=== PATIENT | female | born 1985 | race Caucasian/White ===

== ENCOUNTER 2016-07-11 07:22 | Emergency (ER) | payer OTHER | END 2016-07-11 10:10 | disposition home or self-care (01) | LOC: ER1 07:22 | DX: S29.011A Strain of muscle and tendon of front wall of thorax, initial encounter (principal); F17.200 Nicotine dependence, unspecified, uncomplicated; Z90.49 Acquired absence of other specified parts of digestive tract; X58.XXXA Exposure to other specified factors, initial encounter; Y92.69 Other specified industrial and construction area as the place of occurrence of the external cause; Y99.0 Civilian activity done for income or pay; Z88.5 Allergy status to narcotic agent; Z88.8 Allergy status to other drugs, medicaments and biological substances | CPT/HCPCS: 71020; 96372; 99283; J1885 ==

== ENCOUNTER 2016-07-30 21:48 | Emergency (ER) | payer OTHER | END 2016-07-30 23:45 | disposition left against medical advice (07) | LOC: ER1 21:48 | DX: Z53.21 Procedure and treatment not carried out due to patient leaving prior to being seen by health care provider (principal) ==

== ENCOUNTER 2020-02-28 01:03 | Emergency (ER) | payer BC ==
[~2020-02-28 01:03] MED LIST: CLEOCIN HCL300 MG PO; MUCINEX DM ER1 EACH PO; PROAIR HFA8.5 GM INH; SUDAFED 30 MG T30 MG PO; ZOFRAN ODT 4 MG4 MG PO; ZYRTEC10 MG PO
[2020-02-28] MEDS ORDERED: LODINE CAP 300300 MG PO (02:03)
[2020-02-28] MEDS ORDERED: PENVEE K 500 M500 MG PO (02:03)
[2020-02-28] MEDS ORDERED: PERCOCET 5/325 T1 EA PO (02:20)
== END 2020-02-28 02:42 | disposition home or self-care (01) ==
LOC: ER1 01:03
DX: K08.89 Other specified disorders of teeth and supporting structures (principal); K02.9 Dental caries, unspecified; F17.210 Nicotine dependence, cigarettes, uncomplicated; Z88.8 Allergy status to other drugs, medicaments and biological substances; Z88.5 Allergy status to narcotic agent; Z87.19 Personal history of other diseases of the digestive system
CPT/HCPCS: 64400; 99282

== ENCOUNTER → 2020-04-22 | Outpatient (CLI) | payer BC, OTHER ==
[~2020-04-22] MED LIST changes: +ALBUTEROL2.5 MG/3 M INH; +AMOX TR-K CLV1 EAC4 PO; +AUGMENTIN 875-1 EACH PO; +BENZONATATE100 MG PO; +COMBIVENT RESPIM4 GM INH; +LODINE CAP 300300 MG PO; +MEDROL4 MG PO; +MONTELUKAST SOD10 MG PO; +PENVEE K 500 M500 MG PO; +PERCOCET 5/325 T1 EA PO; +PREDNISONE20 MG PO
== END ==
LOC: KOH-I 09:50
DX: K76.0 Fatty (change of) liver, not elsewhere classified (principal)
CPT/HCPCS: 76705

== ENCOUNTER 2020-06-03 00:47 | Emergency (ER) | payer BC, OTHER ==
[~2020-06-03 00:47] MED LIST changes: -ALBUTEROL2.5 MG/3 M INH; -AMOX TR-K CLV1 EAC4 PO; -AUGMENTIN 875-1 EACH PO; -BENZONATATE100 MG PO; -COMBIVENT RESPIM4 GM INH; -MEDROL4 MG PO; -MONTELUKAST SOD10 MG PO; -PREDNISONE20 MG PO
[2020-06-03] MEDS ORDERED: PENVEE K 500 M500 MG PO (01:29)
[2020-06-03] MEDS ORDERED: LODINE CAP 300300 MG PO (01:29)
== END 2020-06-03 01:43 | disposition home or self-care (01) ==
LOC: ER1 00:47
DX: K02.9 Dental caries, unspecified (principal); K04.7 Periapical abscess without sinus; F17.210 Nicotine dependence, cigarettes, uncomplicated; Z88.5 Allergy status to narcotic agent
CPT/HCPCS: 96372; 99282; J1885

== ENCOUNTER 2020-08-14 02:22 | Inpatient (IN) | payer BC, OTHER ==
[~2020-08-14] VITALS: Ht 165.1 cm; Wt 136.1 kg
[2020-08-14 03:53] LABS: HEMOGLOBIN 9.9 gm/dl (12.3-15.3); RED BLOOD COUNT 3.6 M/UL (4.00-5.10); WHITE BLOOD COUNT 22.2 K/UL (4.5-11.0)
[2020-08-14 04:10] LABS: BUN/CREATININE RATIO 26 (0-10)
[2020-08-14] MEDS ORDERED: BENZONATATE100 MG PO (07:25)
[2020-08-14] MEDS ORDERED: ALBUTEROL2.5 MG/3 M INH (07:25)
[2020-08-14] MEDS ORDERED: AMOX TR-K CLV1 EAC4 PO (07:25)
[2020-08-14] MEDS ORDERED: MONTELUKAST SOD10 MG PO (07:25)
[2020-08-14] MEDS ORDERED: PREDNISONE20 MG PO (07:26)
[2020-08-15 05:20] LABS: HEMOGLOBIN 10.2 gm/dl (12.3-15.3); RED BLOOD COUNT 3.64 M/UL (4.00-5.10); WHITE BLOOD COUNT 20.3 K/UL (4.5-11.0)
[2020-08-15 05:43] LABS: BUN/CREATININE RATIO 20 (0-10)
[2020-08-16] MEDS ORDERED: MEDROL4 MG PO (12:08)
[2020-08-16] MEDS ORDERED: COMBIVENT RESPIM4 GM INH (12:11)
[2020-08-16] MEDS ORDERED: AUGMENTIN 875-1 EACH PO (12:15)
[2020-08-16 13:31] LABS: BUN/CREATININE RATIO 25 (0-10)
--- NOTE | 2020-08-16 14:11 | NUR ---
PATIENT HAD CRITICAL LAB VALUE FOR LACTIC ACID OF 27.6. PROVIDER WAS NOTIFIED AND SAID SHE WAS STILL GOING TO DISCHARGE PATIENT. PROVIDER WANTED PATIENT TO FOLLOW UP WITH HER PCP BY Monday08/19/20.
== END 2020-08-16 16:03 | disposition home or self-care (01) | DRG 189 ==
LOC: ER1 02:22 → CDU 05:13 → MED SURG 4 06:32
PROVIDERS: Internal Medicine; Physician Assistant; ADMIT Internal Medicine
DX: J96.01 Acute respiratory failure with hypoxia (principal); J44.1 Chronic obstructive pulmonary disease with (acute) exacerbation; E87.2 Acidosis; Z68.42 Body mass index [BMI] 45.0-49.9, adult; Z20.822 Contact with and (suspected) exposure to COVID-19; E66.01 Morbid (severe) obesity due to excess calories; F17.210 Nicotine dependence, cigarettes, uncomplicated; J30.2 Other seasonal allergic rhinitis; D63.8 Anemia in other chronic diseases classified elsewhere; Z71.6 Tobacco abuse counseling; Z83.3 Family history of diabetes mellitus; Z90.49 Acquired absence of other specified parts of digestive tract; Z91.041 Radiographic dye allergy status; Z88.6 Allergy status to analgesic agent
CPT/HCPCS: 0240U; 36415; 36600; 71045; 80048; 80053; 80061; 82272; 82550; 82553; 82607; 82746; 82803; 83036; 83540; 83550; 83605; 83874; 83880; 84484; 85025; 85045; 86140; 87040; 93005; 94640; 94660; 94664; 94668; 94760; 96374; 99285; C9113; J0696; J1100; J1650; J2920; J7030

== ENCOUNTER → 2020-09-17 | Outpatient (CLI) | payer BC, OTHER ==
[~2020-09-17] MED LIST changes: +ALBUTEROL2.5 MG/3 M INH; +AMOX TR-K CLV1 EAC4 PO; +AUGMENTIN 875-1 EACH PO; +BENZONATATE100 MG PO; +COMBIVENT RESPIM4 GM INH; +MEDROL4 MG PO; +MONTELUKAST SOD10 MG PO; +PREDNISONE20 MG PO
== END ==
LOC: HEART 5 09:02
DX: R06.2 Wheezing (principal)
CPT/HCPCS: 94060

== ENCOUNTER 2021-01-17 01:41 | Emergency (ER) | payer MEDICAID ==
[2021-01-17] MEDS ORDERED: PHENERGAN 12.12.5 M1 PO (04:57)
== END 2021-01-17 05:03 | disposition home or self-care (01) ==
LOC: ER1 01:41
DX: R51.9 Headache, unspecified (principal); R11.0 Nausea; M79.602 Pain in left arm; H53.142 Visual discomfort, left eye; F17.200 Nicotine dependence, unspecified, uncomplicated; Z88.5 Allergy status to narcotic agent; Z88.8 Allergy status to other drugs, medicaments and biological substances
CPT/HCPCS: 70450; 96374; 96375; 99284; J1200; J1885; J2765

== ENCOUNTER 2021-02-07 10:31 | Inpatient (IN) | payer OTHER ==
[~2021-02-07] VITALS: Ht 165.1 cm; Wt 133.8 kg
[~2021-02-07 10:31] MED LIST changes: +PHENERGAN 12.12.5 M1 PO
[2021-02-07 11:30] LABS: HEMOGLOBIN 14.2 gm/dl (12.3-15.3); RED BLOOD COUNT 5.39 M/UL (4.00-5.10); WHITE BLOOD COUNT 15.6 K/UL (4.5-11.0)
[2021-02-07 12:07] LABS: BUN/CREATININE RATIO 15 (0-10)
[2021-02-08 06:36] LABS: HEMOGLOBIN 13.3 gm/dl (12.3-15.3); RED BLOOD COUNT 5.11 M/UL (4.00-5.10)
[2021-02-08 06:50] LABS: WHITE BLOOD COUNT 30.3 K/UL (4.5-11.0)
[2021-02-08 06:58] LABS: BUN/CREATININE RATIO 24 (0-10)
[2021-02-09] MEDS ORDERED: MEDROL TAB 4 MG4 MG PO (10:49)
[2021-02-09] MEDS ORDERED: PROAIR HFA8.5 GM INH (10:49)
[2021-02-10 06:56] LABS: HEMOGLOBIN 12.1 gm/dl (12.3-15.3); RED BLOOD COUNT 4.66 M/UL (4.00-5.10)
[2021-02-10 07:01] LABS: WHITE BLOOD COUNT 19.7 K/UL (4.5-11.0)
[2021-02-10 07:26] LABS: BUN/CREATININE RATIO 27 (0-10)
[2021-02-10] MEDS ORDERED: SYMBICORT 80-41 INHA INH (10:39)
[2021-02-10] MEDS ORDERED: LEVOFLOXACIN500 MG PO (10:39)
== END 2021-02-10 13:28 | disposition home or self-care (01) | DRG 193 ==
LOC: ER1 10:31 → CDU 13:03 → MED SURG 4 13:03
PROVIDERS: Emergency Medicine; Internal Medicine; Physician Assistant; ADMIT Internal Medicine
DX: J18.9 Pneumonia, unspecified organism (principal); J96.01 Acute respiratory failure with hypoxia; J45.901 Unspecified asthma with (acute) exacerbation; Z20.822 Contact with and (suspected) exposure to COVID-19; F17.210 Nicotine dependence, cigarettes, uncomplicated; J30.2 Other seasonal allergic rhinitis; D72.828 Other elevated white blood cell count; F41.9 Anxiety disorder, unspecified; E66.01 Morbid (severe) obesity due to excess calories; T38.0X5A Adverse effect of glucocorticoids and synthetic analogues, initial encounter; Z90.49 Acquired absence of other specified parts of digestive tract; Z88.6 Allergy status to analgesic agent; Z88.8 Allergy status to other drugs, medicaments and biological substances; Z83.3 Family history of diabetes mellitus; Z80.9 Family history of malignant neoplasm, unspecified; Z71.6 Tobacco abuse counseling
CPT/HCPCS: 36415; 36600; 71045; 80048; 80053; 80307; 81001; 82550; 82553; 82803; 83605; 83735; 83874; 83880; 84484; 84703; 85025; 86140; 87040; 93005; 94640; 94664; 94760; 96374; 96375; 99285; J0696; J2920; J2930; U0002

== ENCOUNTER 2021-06-17 10:09 | Emergency (ER) | payer OTHER ==
[~2021-06-17 10:09] MED LIST changes: +LEVOFLOXACIN500 MG PO; +MEDROL TAB 4 MG4 MG PO; +SYMBICORT 80-41 INHA INH
[2021-06-17 11:01] LABS: HEMOGLOBIN 13.1 gm/dl (12.3-15.3); RED BLOOD COUNT 5.36 M/UL (4.00-5.10)
[2021-06-17 11:26] LABS: BUN/CREATININE RATIO 18 (0-10)
[2021-06-17] MEDS ORDERED: PROTONIX40 MG PO (13:27)
[2021-06-17] MEDS ORDERED: ZOFRAN 4 MG TAB4 MG PO (13:27)
== END 2021-06-17 13:22 | disposition home or self-care (01) ==
LOC: ER1 10:09
PROVIDERS: Physician Assistant Medical
DX: R10.13 Epigastric pain (principal); R11.0 Nausea; E11.9 Type 2 diabetes mellitus without complications; J45.909 Unspecified asthma, uncomplicated; Z79.84 Long term (current) use of oral hypoglycemic drugs; Z88.5 Allergy status to narcotic agent
CPT/HCPCS: 80053; 81001; 82150; 82550; 82553; 83690; 84484; 85025; 93005; 96374; 96375; 99284; C9113; J2405; Q9967

== ENCOUNTER → 2021-07-02 | Outpatient (CLI) | payer OTHER ==
[~2021-07-02] MED LIST changes: +PROTONIX40 MG PO; +ZOFRAN 4 MG TAB4 MG PO
[2021-07-02 16:17] LABS: BUN/CREATININE RATIO 16 (0-10)
[2021-07-03 09:16] LABS: CREATININE, URINE 185.6 mg/dL (Not Estab.)
== END ==
LOC: LAB 15:08
PROVIDERS: Internal Medicine Nephrology
DX: R80.9 Proteinuria, unspecified (principal)
CPT/HCPCS: 36415; 80053; 81001; 82043; 82570; 84156

== ENCOUNTER → 2021-10-22 | Outpatient (CLI) | payer OTHER | LOC: EXRD 08:50 | DX: K76.0 Fatty (change of) liver, not elsewhere classified (principal); R16.1 Splenomegaly, not elsewhere classified | CPT/HCPCS: 76700 ==

== ENCOUNTER → 2021-11-03 | Outpatient (CLI) | payer OTHER | LOC: NM 08:55 | DX: M89.9 Disorder of bone, unspecified (principal) | CPT/HCPCS: 78306; A9503 ==